=== PATIENT | female | born 1935 | race Caucasian/White ===

== ENCOUNTER 2017-11-13 00:02 | Emergency (ER) | payer MEDICAID, MEDICARE, OTHER ==
[~2017-11-13] VITALS: Ht 213.4 cm; Wt 79.4 kg
--- NOTE | 2017-11-13 00:17 | NUR ---
PT TO ER BED 12. "SOB X2 DAYS; CHECKED BP AND WAS 164; TOOK AMLODIPINE 2.5MG ONE HOUR AGO". PT DENIES CP. PT PLACED IN GOWN AND ON LENDING ADVISOR. VSS/RESP EVEN UNLABORED/NAD NOTED/SKIN WARM AND DRY/DENIES N-V-D/AFEBRILE/AOX4. AWAITING MD PARKS.
--- NOTE | 2017-11-13 00:24 | NUR ---
CALLED LAB FOR BLOOD DRAW
--- NOTE | 2017-11-13 00:30 | NUR ---
LAB AT BEDSIDE FOR DRAW.
[2017-11-13 00:40] LABS: BASOPHILS % (AUTO) 0.7 % (0.0-2.0); EOSINOPHILS % (AUTO) 2.7 % (0.0-6.0); HEMATOCRIT 45 % (33-45); LYMPHOCYTES # (AUTO) 2.5 /CMM (0.8-4.8); LYMPHOCYTES % (AUTO) 40.1 % (20.0-44.0); MEAN CORPUSCULAR HGB CONC 33 g/dl (31.0-36.0); MEAN CORPUSCULAR VOLUME 91 fL (82-100); MONOCYTES # (AUTO) 0.5 /CMM (0.1-1.30); MONOCYTES % (AUTO) 7.5 % (2.0-12.0); NEUTROPHILS # (AUTO) 3.1 /CMM (1.8-8.9); PLATELET COUNT (AUTO) 188 /CMM (150-450); RED BLOOD CELL COUNT(AUTO) 4.96 MIL/uL (4.0-5.2); WHITE BLOOD COUNT (AUTO) 6.2 K/uL (4.3-11.0)
[2017-11-13 00:50] LABS: CALCIUM, SERUM 9.3 mg/dL (8.5-10.1); CARBON DIOXIDE 35 mmol/L (21-32); CHLORIDE 102 mmol/L (98-107); CREATININE 0.9 mg/dL (0.6-1.3); GLUCOSE 92 mg/dL (74-106); POTASSIUM 3.5 mmol/L (3.5-5.1); SODIUM SERUM 142 mmol/L (136-145); UREA NITROGEN, BLOOD 14 mg/dL (7-18)
[2017-11-13 00:52] LABS: INR 0.91 (0.87-1.13)
[2017-11-13 00:57] LABS: TROPONIN I < 0.017 ng/mL (0.00-0.056)
[2017-11-13 01:02] LABS: ALANINE AMINOTRANSFERASE 32 U/L (12-78); ALBUMIN 3.9 g/dL (3.4-5.0); ALKALINE PHOSPHATASE 54 U/L (46-116); ASPARTATE AMINOTRANSFERASE 27 U/L (15-37); B-TYPE NATRIURETIC PEPTIDE 51 PG/ML (0-125); BILIRUBIN,DIRECT 0.1 mg/dL (0.0-0.2); BILIRUBIN,TOTAL 0.4 mg/dL (0.2-1.0)
--- NOTE | 2017-11-13 01:05 | NUR ---
XRAY AT BEDSIDE.
--- NOTE | 2017-11-13 01:53 | NUR ---
Patient discharged to home in stable condition. Written and verbal after care instructions given. Patient verbalizes understanding of instruction. Patient ambulatory with a steady gait.
[2017-11-13 01:54] VITALS: BP 134/70
== END 2017-11-13 01:58 | disposition home or self-care (01) ==
LOC: ER 00:07
DX: R06.02 Shortness of breath (principal); I10 Essential (primary) hypertension; F41.9 Anxiety disorder, unspecified
CPT/HCPCS: 36415; 71045-TC; 80048-TC; 80076-TC; 83880; 84484-TC; 85025-TC; 85730-TC; A4606; Z7610

== ENCOUNTER 2021-08-05 10:06 | Emergency (ER) | payer OTHER ==
[~2021-08-05] VITALS: Ht 172.7 cm; Wt 87.3 kg
--- NOTE | 2021-08-05 10:22 | NUR ---
BIB FOR C/O PALPITATION X1 WEEK. DENIES CHEST PAIN. IN ROOM AIR AND DENIES SOB. RESPIRATION REGULAR AND UNLABORED. ATTACHED TO THE MONITOR. WARM BLANKET PROVIDED FOR COFMORT. WILL CONTINUE TO MONITOR THE PATIENT.
--- NOTE | 2021-08-05 10:48 | NUR ---
SALINE LOCK ESTABLISHED, BLOOD DRAWN AND PICKED UP BY LAB
[2021-08-05 10:52] LABS: BASOPHILS % (AUTO) 0.9 % (0.0-2.0); EOSINOPHILS % (AUTO) 1.1 % (0.0-6.0); HEMATOCRIT 45 % (33-45); HEMOGLOBIN 15.3 g/dL (11.5-14.8); LYMPHOCYTES # (AUTO) 1.2 K/uL (0.8-4.8); LYMPHOCYTES % (AUTO) 28.2 % (20.0-44.0); MEAN CORPUSCULAR HGB CONC 34 g/dl (31.0-36.0); MEAN CORPUSCULAR VOLUME 93 fL (82-100); MONOCYTES # (AUTO) 0.3 K/uL (0.1-1.30); MONOCYTES % (AUTO) 6.2 % (2.0-12.0); NEUTROPHILS # (AUTO) 2.8 K/uL (1.8-8.9); NEUTROPHILS % (AUTO) 63.6 % (43.0-81.0); PLATELET COUNT (AUTO) 205 K/uL (150-450); RED BLOOD CELL COUNT(AUTO) 4.85 MIL/uL (4.0-5.2); WHITE BLOOD COUNT (AUTO) 4.4 K/uL (4.3-11.0)
[2021-08-05 11:04] LABS: CALCIUM, SERUM 9.3 mg/dL (8.5-10.1); CARBON DIOXIDE 32 mmol/L (21-32); CHLORIDE 102 mmol/L (98-107); CREATININE 1.1 mg/dL (0.6-1.3); GLUCOSE 129 mg/dL (74-106); SODIUM SERUM 140 mmol/L (136-145); UREA NITROGEN, BLOOD 13 mg/dL (7-18)
--- NOTE | 2021-08-05 14:06 | NUR ---
IV removed. Catheter intact and site benign. Pressure and 4x4 applied to site. No bleeding noted.Patient discharged to home in stable condition. Written and verbal after care instructions given. Patient verbalizes understanding of instruction.
[2021-08-05 14:07] VITALS: BP 126/67
== END 2021-08-05 14:07 | disposition home or self-care (01) ==
LOC: ER 10:12
DX: R00.2 Palpitations (principal)
CPT/HCPCS: 36415; 71045-TC; 80048-TC; 84484-TC; 85025-TC